=== PATIENT | male | born 1995 | race Caucasian/White ===

== ENCOUNTER 2017-05-10 18:21 | Emergency (ER) | payer OTHER, SELFPAY ==
[2017-05-10 18:22] VITALS: BP 126/75; PULSE 110; RESP 16; TEMP 36.5; O2SAT 99; BMI 15.6
--- NOTE | 2017-05-10 19:07 | ED.DCSUM_ITS ---
- ER Visit Summary Date of Service: 05/10/17 Chief Complaint: [Abdominal pain] History of Present Illness: The patient is a 22 M [presents to the emergency department with abdominal discomfort that started around midnight. Patient states that he was at work and lifted a large board weighing approximately 200 pounds when he felt a sudden onset of severe pain in his right lower quadrant. Patient had a burning sensation associated with it. At this time he just feels some soreness like he has been working out. Patient denies any fever. Patient denies any vomiting. Patient denies blood in the stool. Patient has not noticed any swelling or lumps to the area.] Physical Examination: [HEENT-PERRLA, EOMI. Cranial nerves II through XII grossly intact. TMs clear. Mucous membranes moist. No adenopathy. Cardiovascular-regular rate and rhythm without murmur or ectopy Lungs-clear to auscultation, chest wall stable without crepitus or subcu emphysema Abdomen-normoactive bowel sounds, soft, nontender, no rebound or rigidity, no peritoneal signs. No hernias palpated. No real tenderness to the abdominal wall on exam. Extremities-intact ?4, normal range of motion, normal pulses, atraumatic] Test Results: [None indicated] Emergency Department Course and Treatment: [This point I suspect an abdominal wall strain]. I do not feel any hernias. Patient will be given work restrictions. Patient advised to use ibuprofen or Tylenol for discomfort. Treatment Plan: [Patient advised to follow-up with his primary care physician] within the next 5-7 days. Disposition: [Discharged to home in stable condition. Impression] abdominal wall strain This note was generated with [employer] dictation software. It may contain incorrect words, spelling, and punctuation that were not noted in review of the chart prior to signing ED Disposition - Plan for ED Patient: Chief Complaint: Abd Pain Referrals: Yonatan Bauer [Primary Care Provider] -
--- NOTE | 2017-05-10 19:08 | ED.DEP ---
ED Disposition - Plan for ED Patient: Chief Complaint: Abd Pain Instructions: ED Strain Abdominal Muscle Referrals: Yonatan Bauer [Primary Care Provider] - 5-7 Days
[2017-05-10 19:09] VITALS: BP 118/70; PULSE 89; RESP 14; O2SAT 99
== END 2017-05-10 19:22 | disposition home or self-care (01) ==
LOC: ED 19:21
PROVIDERS: Emergency Provider Emergency Medicine; Family Provider Family Medicine; PCP Family Medicine
DX: S39.011A Strain of muscle, fascia and tendon of abdomen, initial encounter (principal); Z72.0 Tobacco use; X50.0XXA Overexertion from strenuous movement or load, initial encounter; Y93.89 Activity, other specified; Y92.89 Other specified places as the place of occurrence of the external cause; Y99.0 Civilian activity done for income or pay
CPT/HCPCS: 99282